=== PATIENT | female | born 1995 | race Caucasian/White ===

== ENCOUNTER 2019-06-10 11:06 | Emergency (ER) | payer OTHER ==
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
[2019-06-10] MEDS ORDERED: TETANUS & DIPHTHERIA TOX,ADULT 0.5 ML VIAL ONE (12:01)
== END 2019-06-10 12:14 | disposition home or self-care (01) ==
LOC: ER 11:06
DX: S60.511A Abrasion of right hand, initial encounter (principal); S00.90XA Unspecified superficial injury of unspecified part of head, initial encounter; W19.XXXA Unspecified fall, initial encounter; Y93.H9 Activity, other involving exterior property and land maintenance, building and construction; Z23 Encounter for immunization
CPT/HCPCS: 90714

== ENCOUNTER 2023-01-04 14:09 | Emergency (ER) | payer OTHER ==
[2023-01-04 15:38] LABS: Absolute Lymphocytes (CBC) 1.7 K/uL (0.7-4.9); Hematocrit 35.7 % (36.0-45.0); Lymphocytes % 20.7 % (15.3-44.8); MCV 88.5 fL (80-100); MPV 10.1 fL (7.6-11.3); RBC Red Blood Cell Count 4.04 M/uL (3.86-4.86)
--- OUTSIDE RECORDS SUMMARY | 2023-01-04 15:40 | XMS REPORT | Continuity of Care Document ---
:1995 Author Organization [facility] t Address [address] [place] [address] Care Team Providers Name Role Phone Barbie Lomeli Primary Care Physician [phone] BARBIE HAYDEN Attending Clinician Unavailable Barbie Lomeli Attending Clinician ALAN PATEL Attending Clinician Unavailable Alan Petersen Attending Clinician [phone] Doctor Unassigned, [place] Attending Clinician Unavailable LUIS GARCIA Attending Clinician Unavailable LUIS GARCIA Attending Clinician Unavailable Luis Garcia MD Attending Clinician Catalina Woodard MD Attending Clinician Steffanie Fischer MD Attending Clinician [phone] DONOVAN GALINDO Attending Clinician Unavailable Donovan Galindo MD Attending Clinician Lab, Jm-Rmchp Attending Clinician Unavailable 1, [facility] Us Room Attending Clinician Unavailable Sylvester Husain MD Attending Clinician SYLVESTER HUSAIN Attending Clinician Unavailable KELSIE HUFF Attending Clinician Unavailable Kelsie Huff MD Attending Clinician Faculty, [facility] Attending Clinician Unavailable Brittany Buchanan MD Attending Clinician BRITTANY BUCHANAN Attending Clinician Unavailable KING LEILANI ALDAIR Je Attending Clinician Unavailable Conrad Courtney MD Attending Clinician CONRAD COURTNEY Attending Clinician Unavailable Kayleigh Malik MD Attending Clinician ANURAG DEMPSEY Attending Clinician Unavailable Roselyn SENIOR PYTHON DEVELOPERAnurag Attending Clinician Ultrasound, Ang-Mfm Attending Clinician Unavailable ROULA SEAY Attending Clinician Unavailable Provider, Jm-Rmchp Temp Attending Clinician Unavailable Ada Roula MONTOYA Attending Clinician [phone] SETH JACK Attending Clinician Unavailable Seth Mclean Attending Clinician Sumit Smallwood MD Attending Clinician [phone] SUMIT SMALLWOOD Attending Clinician Unavailable Leona Arguello S Attending Clinician Kojo Corrigan Attending Clinician Antonio Harp MD Attending Clinician KELSIE HUFF Admitting Clinician Unavailable KAYLEIGH MALIK Admitting Clinician Unavailable LUIS GARCIA Admitting Clinician Unavailable Luis Garcia MD Admitting Clinician DONOVAN GALINDO Admitting Clinician Unavailable Donovan Galindo MD Admitting Clinician Kelsie Huff MD Admitting Clinician Kayleigh Malik MD Admitting Clinician Payers Payer Name Policy Type Policy Number Effective Date Expiration Date [facility] [id number] 2021 [facility] MEDICAID 00:00:00 MEDICAID PENDING PENDING 2021 00:00:00 [place] [id number] 2021 00:00:00 Problems Condition Condition Condition Status Onset Resolution Last Treating Co mments Source Name Details Category Date Date Treatment Clinician Date Encounter Encounter Disease Active Uni vers for IUD for IUD 6-23 [place] Obesity Obesity Disease Active Univers (BMI (BMI 6-23 ity of 30-39.9) 30-39.9) 00:00: [place] 00 [facility] Routine Routine Disease Active Univers 6-02 [place] of [place] [facility] Perineal Perineal Disease Active Unive rs laceration laceration 5-12 it y of with with 00:00: [place] delivery, delivery, 00 Medi joanne third third Branch degree degree Dermoid Dermoid Disease Active Univers cyst cyst 5-11 ity of 00:00: [place] 00 [facility] IUD check IUD check Disease Active Uni vers up up 6-22 ity of 00:00: [place] 00 [facility] Allergies, Adverse Reactions, Alerts Allergy Allergy Status Severity Reaction(s) Onset Inactive Treating Comm ents Source Name Type Date Date Clinician No Known DA Active U [facility]ie 3-16 [facility] Social History Social Habit Start Date Stop Date Quantity Comments Source History SDOH University o f Alcohol Frequency [facility] edical Branch History SDGA University o f Alcohol Std [place] Medical Drinks Branch History [facility] University o f Alcohol Binge [place] Medic al Branch Exposure to 2022-06-29 2022-07-09 Not sure Grady of SARS-CoV-2 00:00:00 09:08:00 [facility] [place] [facility] (event) Branch Alcohol intake 2022-05-03 2022-05-03 Ex-drinker University 00:00:00 00:00:00 (finding) [facility] Alcohol Comment 2021-05-02 2021-05-02 socially Universit y of 00:00:00 00:00:00 [facility] Tobacco use and 2017-11-07 2017-11-07 Smokeless tobacco Un iversity of exposure 00:00:00 00:00:00 non-user [facility] Sex Assigned At [birth year] Universit y of 00:00:00 00:00:00 [facility] Smoking Status Start Date Stop Date Source Never smoked tobacco [facility] Medications Ordered Filled Start Stop Current Ordering Indication Dosage Frequency Signature Comments Components Source Medication Medication Date Date Medication? Clinician (SIG) Name Name Yes [id number] 1{tbl} Take 1 U nivers vitamin 5-13 tablet by ity of w/FA tablet 00:00: mouth [place] 00 daily. Medical Branch docusate Yes [id number] 200mg Take 2 Un sharonda 100 mg 5-13 capsules ity of capsule 00:00: by mouth [place] 00 once daily Medical as needed Branch for Constipati on. ferrous Yes [id number] 325mg Take 1 Uni vers sulfate 325 5-13 tablet by ity of mg (65 mg 00:00: mouth 2 [place] iron) 00 (two) Medical tablet times Branch daily. ibuprofen Yes [id number] 600mg Take 1 U nivers 600 mg 5-13 tablet by ity of tablet 00:00: mouth [place] 00 every 6 Medical (six) Branch hours as needed (Pain). Take with food or milk. norethindro Yes [id number] .35mg Take 1 Univers ne 0.35 mg 5-13 tablet by ity of tablet 00:00: mouth [place] 00 daily. Medical Branch ascorbic Yes [id number] 500mg Take 1 U nivers acid, 4-21 tablet by ity of vitamin C, 00:00[place] 500 mg 00 (three) Medical tablet times Branch daily. ferrous Yes [id number] 325mg Take 1 Un sharonda sulfate 325 4-21 tablet by ity of mg (65 mg 00:00: mouth 2 [place] iron) 00 (two) Medical tablet times Branch daily. proMETHazin 2020-11 Yes Univer s e 25 mg 1-23 ity of tablet 00:00: [place] 00 Medical Branch doxylamine- 2020-11 Yes [id number] 1{tbl} Take 1 Univers pyridoxine, 1-17 tablet by ity of vit B6, 00:00: mouth 4 [place] (DICLEGIS) 00 (four) Medical 10-10 mg times Branch per tablet daily. Miscellaneo Yes [id number] Use as Univers Medical 08-07 directed ity o f Supply 00:00: [place] (BLOOD 00 Medical PRESSURE Branch CUFF) Misc 2020-0 Yes [id number] 1{packe Take 1 Univers vit 9-17 t} Packet by ity of 33-iron-fol 00:00: mouth [place] ic-dha 00 daily. Medical (SELECT-OB Branch + DHA) 29 mg iron-1 mg -250 mg combo pack Immunizations Ordered Filled Immunization Date Status Comments Sourc e Immunization Name Name TDAP 2022-01-03 Completed [facility] 00:00:00 [facility] TDAP 2018-10-11 Completed [facility] 00:00:00 [facility] Influenza Virus 2017-11-07 Completed [facility] y of Vaccine Quad IM 3+ 00:00:00 [facility] Vital Signs Vital Name Observation Time Observation Value Comments Source Systolic blood 2022-07-09 14:09:00 117 mm[Hg] Univer sity of [facility] Diastolic blood 2022-07-09 14:09:00 79 mm[Hg] [facility] Heart rate 2022-07-09 14:09:00 73 /min [facility] Respiratory rate 2022-07-09 14:09:00 18 /min [facility] Body weight 2022-07-09 14:09:00 94.257 kg [facility] BMI 2022-07-09 14:09:00 36.81 kg/m2 [facility] Procedures This patient has no known procedures. Encounters Start End Encounter Admission Attending Care Care Encounter Source Date/Time Date/Time Type Type Clinicians Facility Department ID 2022-02-14 Outpatient X [facility] [id number] Univers 08:59:58 ity of [facility] 2021-11-19 Outpatient X [facility] [id number] Univers 20:16:35 ity of [facility] 2021-09-08 Emergency [facility] [id number] Univers 05:39:18 ity of [facility] 2021-09-07 Emergency [facility] [id number] Univers 11:24[facility] [place] 2022-07-09 2022-07-09 Outpatient R CATRACHO [facility] [id number] Univers 09:00:00 09:23:32 BARBIE [place] o [facility] 2022-07-09 2022-07-09 [facility] [id number] Univers 09:00:00 09:23:32 Visit Barbie R END MAKER 350.1.13.10 ity [facility] [id number] [place] as MATERNAL [id number] [facility] & CHILD [address] [place] [address] 2022-06-21 2022-06-21 Outpatient R AKINSIPE, [facility] [id number] Univers 16:00:00 16:00:00 ALAN mossy o [facility] 2022-06-14 2022-06-14 Outpatient R AKINDEBORAHPE, [facility] [id number] Univers 08:15:00 08:15:00 ALAN mossy o [facility] 2022-05-03 2022-05-03 Outpatient R AKINPUMA, [facility] [id number] Univers 10:00:00 10:37:29 ALAN daven[place] o [facility] 2022-05-03 2022-05-03 [facility] [id number] Univers 10:00:00 10:37:29 Visit Alan Je END MAKER 350.1.13.10 ity of [facility] 4.2.7.2.686 [place] MATERNAL [id number] [facility] & CHILD [address] [place] [address] 2022-05-03 2022-05-03 Outpatient Maria Fernanda HAYDEN [facility] [id number] Univers 10:30:00 10:30:00 XIANGNDA ity o [facility] 2022-05-03 2022-05-03 Outpatient Maria Fernanda HAYDEN [facility] [id number] Univers 10:30:00 10:30:[address] XIANGNDA ity o [facility] 2022-05-03 2022-05-03 Outpatient Maria Fernanda HAYDEN [facility] [id number] Univers 10:30:00 10:30:00 XIANGNDA ity o [facility] 2022-05-03 2022-05-03 Outpatient Maria Fernanda HAYDEN [facility] [id number] Univers 10:30:00 10:30:00 BARBIE ity o [facility] 2022-05-03 2022-05-03 Outpatient R CATRACHO [facility] [id number] Univers 10:30:00 10:30:00 CHAROA isay o f [facility] 2022-05-03 2022-05-03 Outpatient R AKINPUMA, [facility] [id number] Univers 10:00:00 10:00:00 ALAN ity o f [facility] 2022-05-03 2022-05-03 Orders Doctor TRISTAN 1.2.840.114 [id number] Univers 00:00:00 00:00:00 Only Unassigned, CHRISTIANO 350.1.13.10 ity of [place] [facility] 4.2.7.2.686 [place] as [id number] [facility] 009 Branch 2022-04-12 2022-04-12 Outpatient R AKINDEBORAHMARCIN, [facility] [id number] Univers 10:30:00 10:53:25 ALAN isay o [facility] 2022-04-12 2022-04-12 [facility] [id number] Univers 10:30:00 10:53:25 Alan Wooten END MAKER 350.1.13.10 ity of Visit [facility] 4.2.7.2.686 [place] MATERNAL [id number] Med ical & CHILD [address] [place] [address] 2022-03-21 2022-03-23 Inpatient X LUIS GARCIA [facility] [id number] Univers 19:04:00 13:32:00 LUIS GARCIA itlc of [facility] 2022-03-21 2022-03-23 Hospital TRISTAN Garcia 1.2.840.114 [id number] Univers 19:04:00 13:32:00 Encounter Luis ALVARADO 350.1.13.10 ity of [facility] 4.2.7.2.686 [place] as [id number] [facility] 133 Branch 2022-03-21 2022-03-22 Anesthesia Catalina Woodard 1.2.84 0.114 [id number] Univers 23:12:00 06:28:00 Event Koutrouvelagatha, Steffanie CHRISTIANO 350.1.1 3.10 ity of [facility] 4.2.7.2.686 [place] as [id number] [facility] 132 Branch 2022-03-21 2022-03-21 Orders Doctor TRISTAN 1.2.840.114 [id number] Univers 00:00:00 00:00:00 Only Unassigned, CHRISTIANO 350.1.13.10 ity of [place] [facility] 4.2.7.2.686 [place] as [id number] [facility] 009 Branch 2022-03-14 2022-03-14 Outpatient R AKINSIPE, [facility] [id number] Univers 13:00:00 13:19:04 ALAN daven[place] o [facility] 2022-03-14 2022-03-14 Routine Akinsipe, [facility] [id number] Univers 13:00:00 13:19:04 Alan C END MAKER 350.1.13.10 ity of Visit [facility] 4.2.7.2.686 [place] MATERNAL [id number] [facility] ical & CHILD [address] [place] [address] 2022-03-10 2022-03-10 Outpatient X SHAKIRA DONOVAN [facility] M[facility]Y [id number] Univers 18:17:00 19:36:00 ity of [facility] 2022-03-10 2022-03-10 Emergency Hernando Galindon [facility] 1.2.840.114 [id number] Univers 18:17:00 19:36:00 [place] 350.1.13.10 i ty [facility] 4.2.7.2.686 [place] O[place] [id number] [facility] 083 Branch 2022-03-09 2022-03-09 Outpatient R AKINSIPE, [facility] [id number] Univers 09:15:00 13:39:33 ALAN ity o f [facility] 2022-03-09 2022-03-09 Routine Akinsipe, [facility] [id number] Univers 09:15:00 13:39:33 Alan C END MAKER 350.1.13.10 ity of Visit REGIONAL 4.2.7.2.686 [place] as MATERNAL [id number] [facility] [address] [place] [address] 2022-03-09 2022-03-09 Telephone Catracho [facility] 1.2.450.525 [id number] Univers 00:00:00 00:00:00 Tereelba R END MAKER 350.1.13.10 ity of REGIONAL 4.2.7.2.686 [place] as MATERNAL [id number] [facility] [address] [place] [address] 2022-03-07 2022-03-07 [facility] [id number] Univers 09:45:00 10:02:[address] [facility] 2022-03-07 2022-03-07 Routine [facility] 1.2.500.685 [id number] Univers 09:45:00 10:02:34 Alan Wooten END MAKER 350.1.13.10 ity of Visit REGIONAL 4.2.7.2.686 [place] MATERNAL [id number] [facility] & CHILD [address] [place] [address] 2022-03-07 2022-03-07 Outpatient R JORGE [facility] [id number] Univers 09:45:00 09:45:[address] [facility] 2022-03-02 2022-03-02 Outpatient R CATRACHO [facility] [id number] Univers 13:00:00 13:00:00 BARBIE villagomez [facility] 2022-03-02 2022-03-02 Packing And Wrapping Supervisor Lab, Ang-Rmchp [facility] 1.2.840. 114 [id number] Univers 13:00:00 13:00:00 Visit Catracho Barbie Irving END MAKER 350.1.13.10 ity of REGIONAL 4.2.7.2.686 [place] as MATERNAL [id number] [facility] & CHILD [address] [place] [address] 2022-03-01 2022-03-01 Telephone [facility] 1.2.840.114 [id number] Univers 00:00:00 00:00:00 Alan C END MAKER 350.1.13.10 ity of REGIONAL 4.2.7.2.686 [place] as MATERNAL [id number] [facility] [address] [place] [address] 2022-02-28 2022-02-28 Routine Akinsipe, [facility] [id number] Univers 10:00:00 11:00:46 Alan C END MAKER 350.1.13.10 ity of Visit REGIONAL 4.2.7.2.686 [place] as MATERNAL [id number] [facility] [address] [place] [address] 2022-02-28 2022-02-28 Outpatient R AKINSIPE, [facility] [id number] Univers 10:00:00 11:00:46 ALAN ity o f [facility] 2022-02-28 2022-02-28 Outpatient R AKINSIPE, [facility] [id number] Univers 10:00:00 10:00:00 ALAN ity o f [facility] 2022-02-28 2022-02-28 Outpatient R AKINSIPE, [facility] [id number] Univers 10:00:00 10:00:00 ALAN ity o f [facility] 2022-02-21 2022-02-21 Outpatient R AKINSIPE, [facility] [id number] Univers 09:45:00 10:31:33 ALAN ity o f [facility] 2022-02-21 2022-02-21 Routine Akinsipe, [facility] [id number] Univers 09:45:00 10:31:33 Alan C END MAKER 350.1.13.10 ity of Visit REGIONAL 4.2.7.2.686 [place] as MATERNAL [id number] [facility] & CHILD [address] [place] [address] 2022-02-19 2022-02-19 Packing And Wrapping Supervisor 1Kim Room [facility] 1.2. 840.114 [id number] Univers 09:45:00 10:23:16 Visit Sylvester Husain END MAKER 350.1.13.10 ity of REGIONAL 4.2.7.2.686 [place] MATERNAL [id number] Med ical & CHILD 369 [facility] 2022-02-19 2022-02-19 Outpatient P FRANCI [facility] [id number] Univers 09:45:00 09:45:00 [facility] [place] 2022-02-14 2022-02-14 Outpatient X ADUM, [facility] MANDY [id number] Univers 06:54:00 08:55:00 KELSIE ity [facility] 2022-02-14 2022-02-14 Emergency Adum, [facility] 1.2.235.532 [id number] Univers 06:54:00 08:55:00 Kelsie SAMUEL 350.1.13.10 ity [facility] 4.2.7.2.686 [facility] [id number] [address] 2022-02-12 2022-02-12 Telemedici Faculty, [facility] 1.2.840.114 [id number] Univers 08:30:00 08:45:00 ne Visit Brittany Buchanan END MAKER 350.1.13.10 ity of REGIONAL 4.2.7.2.686 [place] MATERNAL [id number] [facility] & CHILD [address] [place] [address] 2022-02-12 2022-02-12 Outpatient Maria Fernanda BUCHANAN [facility] [id number] Univers 08:30:00 08:30:00 BRITTANY lc [facility] 2022-01-26 2022-01-26 Outpatient R JORGE [facility] [id number] Univers 08:00:00 08:49:52 ALAN ity o f [facility] 2022-01-26 2022-01-26 Routine Akinsimarcin, [facility] 1.2.962.204 [id number] Univers 08:00:00 08:49:52 Alan C END MAKER 350.1.13.10 ity of Visit [facility] 4.2.7.2.686 [place] as MATERNAL [id number] [facility] & CHILD [address] [place] [address] 2022-01-23 2022-01-23 Outpatient R KING LEILANI [facility] [id number] Univers 13:40:00 14:01:00 ALDAIR ity of [facility] 2022-01-23 2022-01-23 Telephone [facility] 1.2.607.082 [id number] Univers 00:00:00 00:00:00 Xiangkelsiearthur R END MAKER 350.1.13.10 ity of REGIONAL 4.2.7.2.686 [place] as MATERNAL [id number] [facility] [address] [place] [address] 2022-01-17 2022-01-17 Outpatient [facility] [id number] Univers 08:00:00 08:00:00 ALAN ity o [facility] 2022-01-12 2022-01-12 Outpatient [facility] [id number] Univers 12:45:00 13:47:37 ALAN ity o f [facility] 2022-01-12 2022-01-12 [facility] 1.2.459.070 [id number] Univers 12:45:00 13:47:37 Alan C END MAKER 350.1.13.10 ity of Visit REGIONAL 4.2.7.2.686 [place] as MATERNAL [id number] [facility] & CHILD [address] [place] [address] 2022-01-10 2022-01-10 Abstract [facility] 1.2.840.114 [id number] Univers 00:00:00 00:00:00 Alan C END MAKER 350.1.13.10 ity of REGIONAL 4.2.7.2.686 [place] as MATERNAL [id number] [facility] [address] [place] [address] 2022-01-09 2022-01-09 Packing And Wrapping Supervisor 1, [facility] Room [facility] 1.2. 840.114 [id number] Univers 15:30:00 16:09:04 Visit Conrad Courtney END MAKER 350.1.13.10 ity of REGIONAL 4.2.7.2.686 [place] as MATERNAL [id number] [facility] ical & CHILD [address] [place] [address] 2022-01-09 2022-01-09 Outpatient P [facility] [id number] Univers 15:30:00 15:30:00 CONRAD ity of [facility] 2022-01-08 2022-01-08 Telephone [facility] 1.2.840.114 [id number] Univers 00:00:00 00:00:00 Alan C END MAKER 350.1.13.10 ity of [facility] 4.2.7.2.686 [place] as MATERNAL [id number] [facility] [address] [place] [address] 2022-01-03 2022-01-03 [facility] [id number] Univers 08:00:00 09:19:11 ALAN d[place] o [facility] 2022-01-03 2022-01-03 Routine [facility] 1.2.726.461 [id number] Univers 08:00:00 09:19:11 Alan C END MAKER 350.1.13.10 ity of Visit [facility] 4.2.7.2.686 [place] as MATERNAL [id number] [facility] & CHILD [address] [place] [address] 2022-01-03 2022-01-03 [facility] [id number] Univers 08:00:00 08:00:00 ALAN daven[place] o [facility] 2022-01-03 2022-01-03 Orders Doctor HUDSON 1.2.840.114 [id number] Univers 00:00:00 00:00:00 Only Unassigned, CHRISTIANO 350.1.13.10 ity of [place] [facility] 42.7.2.686 Osman as [id number] [address] 2021-12-06 2021-12-06 Outpatient R AKINSIPE, [facility] [id number] Univers 08:00:00 08:43:51 ALAN daven[place] o [facility] 2021-12-06 2021-12-06 Routine [facility] 1.2.170.544 [id number] Univers 08:00:00 08:43:51 Alan C END MAKER 350.1.13.10 ity of Visit [facility] 4.2.7.2.686 [place] as MATERNAL [id number] Med ical & CHILD [address] [place] [address] 2021-12-05 2021-12-05 Outpatient R JORGE [facility] [id number] Univers 10:30:00 10:30:00 ALAN isalc o f [facility] 2021-11-19 2021-11-19 Outpatient X [facility] MANDY [id number] Univers 13:33:00 18:55:00 ity of [facility] 2021-11-19 2021-11-19 Emergency MalikKayleigh [facility] 1.2.840.114 [id number] Univers 13:33:00 18:55:00 [facility] 350.1.13.10 i ty of [place] 4.2.7.2.686 [facility] [id number] [address] 2021-11-13 2021-11-13 Outpatient R ROSELYN [facility] [id number] Univers 15:30:00 15:37:22 ANURAG [place] [facility] 2021-11-13 2021-11-13 Routine [facility] 1.2.603.980 [id number] Univers 15:30:00 15:37:22 Anurag Smith END MAKER 350.1.13.10 i ty of [facility] 4.2.7.2.686 [place] as MATERNAL [id number] [facility] & [address] 2021-11-13 2021-11-13 Telephone [facility] 1.2.851.033 [id number] Univers 00:00:00 00:00:00 Barbie R END MAKER 350.1.13.10 ity of [facility] 4.2.7.2.686 [place] as MATERNAL [id number] [facility] & CHILD [address] [place] [address] 2021-11-08 2021-11-08 Outpatient R ROSELYN [facility] [id number] Univers 09:30:00 09:30:00 ANURAG [place] [facility] 2021-11-07 2021-11-07 Outpatient R ROSELYN [facility] [id number] Univers 16:00:00 16:34:24 ANURAG [place] [facility] 2021-11-07 2021-11-07 Routine [facility] [id number] [id number] Univers 16:00:00 16:34:24 Anurag N END MAKER 350.1.13.10 i ty of Visit REGIONAL 4.2.7.2.686 [place] as MATERNAL [id number] [facility] [address] [place] [address] 2021-11-06 2021-11-06 Packing And Wrapping Supervisor Ultrasound, [facility] [id number] Univers 09:30:00 10:45:00 Visit Sylvester Husain END MAKER [id number] ity of REGIONAL [id number] Osman as MATERNAL [id number] [facility] [address] [place] [address] 2021-11-06 2021-11-06 Outpatient P FRANCI [facility] [id number] Univers 09:30:00 09:30:00 SYLVESTER [facility] 2021-11-06 2021-11-06 Abstract Catracho [facility] 1.2.840.114 [id number] Univers 00:00:00 00:00:00 Barbie Irving END MAKER 350.1.13.10 ity of REGIONAL [id number] [place] MATERNAL [phone] [facility] & [address] 2021-10-25 2021-10-25 [facility]phone [facility] 1.2.840.114 [id number] Univers 00:00:00 00:00:00 Anurag Smith END MAKER 350.1.13.10 it y of REGIONAL [id number] [place] as MATERNAL [phone] [facility] & CHILD [address] [place] [address] 2021-10-12 2021-10-12 Outpatient R [facility] [id number] Univers 08:45:00 09:21:17 ANURAG daven[place] [facility] 2021-10-12 2021-10-12 Routine [facility] [id number] Univers 08:37:39 09:21:17 Anurag N END MAKER 350.1.13.10 i ty of Visit REGIONAL [id number] [place] MATERNAL [phone] Med ical & CHILD [address] [place] [address] 2021-10-03 2021-10-03 Telephone [facility] 1.2.840.114 [id number] Univers 00:00:00 00:00:00 Anurag Smith END MAKER 350.1.13.10 it y of [facility] [id number] [place] MATERNAL [phone] Med ical & CHILD [address] [place] [address] 2021-09-27 2021-09-27 Outpatient Maria Fernanda [facility] [id number] Univers 10:45:00 11:50:25 ROULA davenport o [facility] 2021-09-27 2021-09-27 Outpatient Maria Fernanda [facility] [id number] Univers 10:45:00 11:50:25 ROULA davenport o [facility] 2021-09-27 2021-09-27 Routine Provider, Sabrina [facility] 1 .2.840.114 [id number] Univers 10:38:13 11:50:25 Roula Seay END MAKER 350.1.13 .10 ity of Visit REGIONAL [id number] [place] MATERNAL [phone] Med ical & CHILD [address] [place] [address] 2021-09-27 2021-09-27 Telephone [facility] 1.2.840.114 [id number] Univers 00:00:00 00:00:00 Roula Samayoa END MAKER [id number] ity of REGIONAL [id number] [place] MATERNAL [phone] Med ical & CHILD [address] [place] [address] 2021-09-25 2021-09-25 Emergency X JACK, [facility] ERT [id number] Univers 20:02:00 21:44:00 SETH d[place] [facility] 2021-09-25 2021-09-25 Emergency Jack, [facility] 1.2.840.114 [id number] Univers 20:02:00 21:44:00 [facility] 350.1.13.10 i ty [facility] 4.2.7.2.686 [facility] [phone] [facility] [address] [place] 2021-09-15 2021-09-15 Orders Doctor TRISTAN 1.2.840.114 [id number] Univers 00:00:00 00:00:00 Only Unassigned, CHRISTIANO 350.1.13.10 ity of [place] [facility] 4.2.7.2.686 [place] as [phone] [facility] 00[address] [place] 2021-09-14 2021-09-14 Packing And Wrapping Supervisor [facility]trasound[facility] 1.2 .840.114 [id number] Univers 08:33:37 09:03:37 Visit Anurag Dempsey END MAKER 350.1.13.10 ity of Sumit Smallwood [facility] 4.2.7.2 .686 [place] MATERNAL [phone] Med ical & CHILD 369 [facility] 2021-09-14 2021-09-14 Routine Roselyn [facility] 1.2.211.767 [id number] Univers 08:05:38 08:33:43 Anurag Smith END MAKER 350.1.13.10 i ty of Visit REGIONAL [id number] [place] MATERNAL [phone] Med ical & CHILD [address] [place] [address] 2021-09-14 2021-09-14 Outpatient P CL AZCHESTER [facility] [id number] Univers 08:30:00 08:30:00 SUMIT ity of [facility] 2021-09-13 2021-09-13 Telephone Roselyn AZCHESTER 1.2.840.114 [id number] Univers 00:00:00 00:00:00 Anurag Smith END MAKER 350.1.13.10 it y of REGIONAL [id number] [place] MATERNAL [phone] Med ical & CHILD [address] [place] [address] 2021-08-29 2021-08-29 Patient Roselyn [facility] 1.2.219.059 [id number] Univers 00:00:00 00:00:00 Secure Msg Anurag Smith END MAKER 350.1.13.10 ity of [facility] [id number] [place] MATERNAL [phone] Med ical & CHILD 107 [facility] 2021-08-29 2021-08-29 Telephone Roselyn AZCHESTER 1.2.840.114 [id number] Univers 00:00:00 00:00:00 Anurag Smith END MAKER 350.1.13.10 it y of REGIONAL [id number] [place] MATERNAL [phone] Med ical & CHILD 107 [facility] 2021-08-28 2021-08-28 Telephone Roselyn [facility] 1.2.840.114 [id number] Univers 00:00:00 00:00:00 Anurag Smith END MAKER 350.1.13.10 it y of REGIONAL [id number] [place] MATERNAL [phone] Med ical & CHILD [address] [place] [address] 2021-08-21 2021-08-21 Routine Provider, Sabrina [facility] 1 .2.840.114 [id number] Univers 09:53:39 10:39:30 Roula Seay END MAKER 350.1.13 .10 ity of Visit REGIONAL [id number] [place] MATERNAL [phone] Med ical & CHILD [address] [place] [address] 2021-08-21 2021-08-21 Outpatient R [facility] [id number] Univers 10:00:00 10:00:00 ity of [facility] 2021-08-15 2021-08-15 Packing And Wrapping Supervisor Ultrasound, Dada [facility] 1.2 .840.114 [id number] Univers 08:23:20 08:53:20 Visit Brittany Buchanan END MAKER 350.1.13.10 ity of REGIONAL [id number] [place] MATERNAL [phone] Med ical & CHILD 369 [facility] 2021-08-15 2021-08-15 Outpatient P [facility] [id number] Univers 08:30:00 08:30:00 ity of [facility] 2021-08-15 2021-08-15 Abstract Roselyn [facility] 1.2.840.114 [id number] Univers 00:00:00 00:00:00 Anurag Smith END MAKER 350.1.13.10 it y of REGIONAL [id number] [place] MATERNAL [phone] Med ical & CHILD 107 [facility] 2021-08-07 2021-08-07 Routine Faculty, Jm Wilkes [facility] 1.2 .840.114 [id number] Univers 10:29:39 11:23:56 Brittany Buchanan END MAKER 350.1.13.10 ity of Visit REGIONAL [id number] [place] MATERNAL [phone] Med ical & CHILD [address] [place] [address] 2021-08-07 2021-08-07 Outpatient R [facility] [id number] Univers 10:30:00 10:30:00 ity of [facility] 2021-07-28 2021-07-28 Telephone Catracho [facility] 1.2.857.059 [id number] Univers 00:00:00 00:00:00 Roshunda R END MAKER 350.1.13.10 ity of REGIONAL 4.2.7.2.686 [place] as MATERNAL [phone] [facility] [address] [place] [address] 2021-07-27 2021-07-27 Packing And Wrapping Supervisor Lab, Rosalesdaphney [facility] 1.2.840. 114 [id number] Univers 08:11:06 09:40:38 Visit Alan Patel END MAKER 350.1.13. 10 ity of REGIONAL 4.2.7.2.686 [place] MATERNAL [phone] [facility] ical & CHILD [address] [place] [address] 2021-07-27 2021-07-27 Outpatient R JORGE [facility] [id number] Univers 07:45:00 07:45:00 ALAN mossy o f [facility] 2021-07-24 2021-07-24 Initial Catracho [facility] 1.2.840.114 [id number] Univers 09:02:22 10:05:44 Roshunda R END MAKER 350.1.13.10 ity of Visit REGIONAL 4.2.7.2.686 [place] MATERNAL [phone] Med ical & CHILD [address] [place] [address] 2021-07-24 2021-07-24 [facility] 1.2.840.114 [id number] Univers 09:02:22 10:05:44 Xiangnda R END MAKER 350.1.13.10 ity of Visit REGIONAL 4.2.7.2.686 [place] MATERNAL [id number] [facility] [address] [place] [address] 2021-07-24 2021-07-24 Outpatient [facility] [id number] Univers 09:00:00 09:00:00 XIANGNDA ity o f [facility] 2021-07-24 2021-07-24 Orders Doctor TRISTAN 1.2.840.114 [id number] Univers 00:00:00 00:00:00 Only Unassigned, CHRISTIANO 350.1.13.10 ity of [place] [facility] 4.2.7.2.686 [place] as [phone] [address] 2021-07-24 2021-07-24 Orders Doctor TRISTAN 1.2.840.114 [id number] Univers 00:00:00 00:00:00 Only Unassigned, CHRISTIANO 350.1.13.10 ity of [place] [facility] 4.2.7.2.686 [place] as [phone] [address] 2021-05-04 2021-05-04 Office [facility] 1.2.840.114 [id number] Univers 15:28:23 16:08:36 Visit Charoa R END MAKER 350.1.13.10 ity of REGIONAL 4.2.7.2.686 [place] MATERNAL [phone] [facility] [address] [place] [address] 2021-05-04 2021-05-04 Outpatient [facility] [id number] Univers 15:30:00 15:30:00 XIANGNDA ity o f [facility] 2021-05-02 2021-05-02 Office [facility] 1.2.840.114 [id number] Univers 10:45:41 11:52:36 Visit Xiangnda R END MAKER 350.1.13.10 ity of REGIONAL 4.2.7.2.686 [place] MATERNAL [phone] Med ical & CHILD [address] [place] [address] 2021-05-02 2021-05-02 Outpatient R CATRACHO [facility] [id number] Univers 11:00:00 11:00:00 BARBIE davenport o hernando [facility] 2021-05-02 2021-05-02 Orders Doctor HUDSON 1.2.840.114 [id number] Univers 00:00:00 00:00:00 Only UnassignedCHRISTIANO 350.1.13.10 ity of [place] [facility] 4.2.7.2.686 [place] as [phone] [address] 2020-05-18 2020-05-18 Emergency [facility] 1.2.514.167 [id number] Univers 18:39:45 22:50:00 Leona Samuel 350.1.13.10 i ty of [place] 4.2.7.2.686 [facility] [phone] [address] 2020-01-07 2020-01-07 [facility] 1.2.840.114 [id number] Univers 10:02:28 11:27:00 Kojo Samuel 350.1.13.10 i ty of [place] 4.2.7.2.686 [facility] [phone] [address] 2020-01-07 2020-01-07 Orders Doctor HUDSON 1.2.840.114 [id number] Univers 00:00:00 00:00:00 Only UnassignedCHRISTIANO 350.1.13.10 ity of [place] [facility] 4.2.7.2.686 [place] as [phone] [address] 2020-01-03 2020-01-03 Emergency [facility] 1.2.126.762 [id number] Univers 20:26:25 21:35:00 Antonio Samuel 350.1.13.10 ity of [place] 4.2.7.2.686 [facility] [phone] [address] 2020-01-03 2020-01-03 Orders Doctor HUDSON 1.2.840.114 [id number] Univers 00:00:00 00:00:00 Only UnassignedKATHERINEY 350.1.13.10 ity of [place] [facility] 4.2.7.2.686 [place] [phone] [facility] [address] Results This patient has no known results.
[2023-01-04 15:57] LABS: Potassium 3.8 mmol/L (3.5-5.1)
[2023-01-04 16:39] LABS: Urine Blood 3+ (Negative); Urine Glucose Negative (Negative); Urine Protein Negative (Negative); Urine Specific Gravity >=1.030 (1.005-1.030)
--- NOTE | 2023-01-04 16:46 | RAD REPORT ---
EXAM DESCRIPTION: US - Transvaginal OB - 01/04/2023 3:12 pm CLINICAL HISTORY: with vaginal bleeding COMPARISON: None. FINDINGS: The uterus measures 8 x 4 x 5 centimeters. An IUD is present within the endometrium exten ding into the uterine fundus. A gestational sac is not visualized. The left ovary normal in size and echotexture. 7.5 centimeter partially echogenic mass right adnexal. Right ovary not clearly seen. Left adnexal unremarkable. No significant free fluid IMPRESSION: Nonvisualization of a gestational sac within the endometrium. These findings could represent an early intrauterine in which the gestational sac is not se en. and even an ectopic can also result in this appearance. This all should be cor related clinically and with serial beta HCG levels. Followup endovaginal sonogram in 1 week recommend ed ICD in place 7.5 centimeter partially echogenic mass probably dermoid. Hemorrhagic ovarian cyst is probably less l ikely. This can be confirmed with a nonemergent CT or MRI
[2023-01-04 17:11] LABS: Urine Bacteria None Seen /HPF (<20); Urine Mucus Slight /HPF (None Seen); Urine RBC <5 /HPF (None Seen)
--- NOTE | 2023-01-04 17:21 | EDPHYS ---
Physician Documentation [facility] Name: Lamberto Saravia Age: 27 yrs Sex: Female : 1995 Arrival Date: 01/04/2023 Time: 14:19 Bed 10 Private MD: Jeff Olivier HPI: 01/04 14:43 This 27 yrs old Female presents to ER via Ambulatory with complaints of Possible snw , Abdominal Cramping. 14:43 The patient presents with vaginal bleeding that is light. Onset: The symptoms/episode snw began/occurred suddenly. Associated signs and symptoms: Pertinent positives: + test. Severity of symptoms: At their worst the symptoms were very mild. The patient has not experienced similar symptoms in the past. The patient has not recently seen a physician. 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 snw + test today and then some bright red spotting, Pt states last intercourse more than one month ago Historical: - Allergies: 14:24 No Known Allergies; hb - Home Meds: 14:24 None [Active]; hb - PMHx: 14:24 None; hb - PSHx: 14:24 None; hb - Immunization history:: Adult Immunizations up to date. - Social history:: Smoking status: Patient denies any tobacco usage or history of. ROS: 14:42 Constitutional: Negative for fever, chills, and weight loss, Eyes: Negative for injury, snw pain, redness, and discharge, ENT: Negative for injury, pain, and discharge, Neck: Negative for injury, pain, and swelling, Cardiovascular: Negative for chest pain, palpitations, and edema, Respiratory: Negative for shortness of breath, cough, wheezing, and pleuritic chest pain, Abdomen/GI: Negative for abdominal pain, nausea, vomiting, diarrhea, and constipation, Back: Negative for injury and pain, MS/Extremity: Negative for injury and deformity, Skin: Negative for injury, rash, and discoloration, Neuro: Negative for headache, weakness, numbness, tingling, and seizure, Psych: Negative for depression, anxiety, suicide ideation, homicidal ideation, and hallucinations. 14:42 : Positive for vaginal bleeding, menstrual abnormality, mild lower abd cramping yesterday. Exam: 14:42 Constitutional: This is a well developed, well nourished patient who is awake, alert, snw and in no acute distress. Head/Face: Normocephalic, atraumatic. Eyes: Pupils equal round and reactive to light, extra-ocular motions intact. Lids and lashes normal. Conjunctiva and sclera are non-icteric and not injected. Cornea within normal limits. Periorbital areas with no swelling, redness, or edema. ENT: Nares patent. No nasal discharge, no septal abnormalities noted. Tympanic membranes are normal and external auditory canals are clear. Oropharynx with no redness, swelling, or masses, exudates, or evidence of obstruction, uvula midline. Mucous membranes moist. Neck: Trachea midline, no thyromegaly or masses palpated, and no cervical lymphadenopathy. Supple, full range of motion without nuchal rigidity, or vertebral point tenderness. No Meningismus. Chest/axilla: Normal chest wall appearance and motion. Nontender with no deformity. No lesions are appreciated. Cardiovascular: Regular rate and rhythm with a normal S1 and S2. No gallops, murmurs, or rubs. Normal PMI, no JVD. No pulse deficits. Respiratory: Lungs have equal breath sounds bilaterally, clear to auscultation and percussion. No rales, rhonchi or wheezes noted. No increased work of breathing, no retractions or nasal flaring. Abdomen/GI: Soft, non-tender, with normal bowel sounds. No distension or tympany. No guarding or rebound. No evidence of tenderness throughout. Back: No spinal tenderness. No costovertebral tenderness. Full range of motion. Skin: Warm, dry with normal turgor. Normal color with no rashes, no lesions, and no evidence of cellulitis. MS/ Extremity: Pulses equal, no cyanosis. Neurovascular intact. Full, normal range of motion. Neuro: Awake and alert, GCS 15, oriented to person, place, time, and situation. Cranial nerves II-XII grossly intact. Motor strength 5/5 in all extremities. Sensory grossly intact. Cerebellar exam normal. Normal gait. Psych: Awake, alert, with orientation to person, place and time. Behavior, mood, and affect are within normal limits. Vital Signs: 14:22 BP 146 / 100; Pulse 83; Resp 16; Temp 97.8(TE); Pulse Ox 100% on R/A; Weight 90.72 kg; hb Height 5 ft. 3 in. (160.02 cm); Pain 3/10; 14:22 Body Mass Index 35.43 (90.72 kg, 160.02 cm) hb MDM: 14:29 Patient medically screened. johanna 14:46 Differential diagnosis: dysfunctional uterine bleeding, dysmenorrhea, malignancy, snw . Data reviewed: vital signs, nurses notes. ED course: Pt to US. 17:03 Counseling: I had a detailed discussion with the patient and/or guardian regarding: the snw historical points, exam findings, and any diagnostic results supporting the discharge/admit diagnosis, the presence of at least one elevated blood pressure reading (>120/80) during this emergency department visit, lab results, radiology results, the need for outpatient follow up, for definitive care, to return to the emergency department if symptoms worsen or persist or if there are any questions or concerns that arise at home. Special discussion: Based on the history and exam findings, there is no indication for further emergent testing or inpatient evaluation. I discussed with the patient/guardian the need to see the OB Gyne specialist for further evaluation of the symptoms. I discussed with the patient/guardian the need to see the primary care provider for further evaluation of the symptoms. 17:19 ED course: Pt to return to ED Saturday for repeat HCG, has appt with REAL ESTATE TRANSACTION MANAGER on 01/16/23. 01/04 14:22 Order name: Urine Culture 01/04 14:22 Order name: Urine Microscopic Only; Complete Time: 17:18 01/04 14:41 Order name: Abo/rh Typing; Complete Time: 16:28 01/04 14:41 Order name: Basic Metabolic Panel; Complete Time: 15:58 01/04 14:41 Order name: CBC with Diff; Complete Time: 15:42 01/04 14:41 Order name: Quantitative Hcg; Complete Time: 15:58 01/04 14:22 Order name: Urine Dipstick-Ancillary (obtain specimen); Complete Time: 16:41 01/04 14:22 Order name: Urine Test (obtain specimen); Complete Time: 16:41 01/04 14:41 Order name: US Transvaginal Ob; Complete Time: 16:51 snw 01/04 14:41 Order name: IV Saline Lock; Complete Time: 15:37 snw 01/04 15:18 Order name: Pelvis Complete EDMS 01/04 16:40 Order name: Urine Dipstick-Ancillary; Complete Time: 16:40 EDMS 01/04 16:50 Order name: Urine --Ancillary (enter results); Complete Time: 16:57 eb 01/04 14:41 Order name: Labs collected and sent; Complete Time: 15:37 snw 01/04 14:41 Order name: NPO; Complete Time: 16:52 snw Administered Medications: No medications were administered Disposition Summary: 01/04/23 17:21 Discharge Ordered Location: Home snw Condition: Stable snw Diagnosis - Abnormal uterine and vaginal bleeding, unspecified snw - HCGq 33 snw - Elevated blood-pressure reading, without diagnosis of hypertension snw Followup: snw - With: Private Physician - When: 7 - 10 days - Reason: Recheck today's complaints, Continuance of care, Re-evaluation by your physician Followup: snw - With: Emergency Department - When: 2 - 3 days - Reason: repeat HCG Discharge Instructions: - Discharge Summary Sheet snw - Abnormal Uterine Bleeding snw - Hypertension, Adult, [id number] snw - How to Take Your Blood Pressure, [id number] snw - DASH Eating Plan snw - Managing Your Hypertension snw Forms: - Medication Reconciliation Form snw - Thank You Letter snw - Antibiotic Education snw - Prescription Opioid Use snw Signatures: Dispatcher [employer] Jeff Christianson MD MD cha Waters, Shelly, FRUIT PEELER-C FRUIT PEELER-Csnw Nuha Gee, RN RN
--- NOTE | 2023-01-04 17:21 | ER ---
Nurse's Notes [facility] Name: Lamberto Saravia Age: 27 yrs Sex: Female : 1995 Arrival Date: 01/04/2023 Time: 14:19 Bed 10 Private MD: Diagnosis: Abnormal uterine and vaginal bleeding, unspecified;HCGq 33;Elevated blood-pressure reading, without diagnosis of hypertension Presentation: 01/04 14:22 Chief complaint: Abdominal cramping x 2 days, positive home test x 3 today. hb LMP unknown, has an IUD in place. Coronavirus screen: At this time, the client does not indicate any symptoms associated with coronavirus-19. Ebola Screen: No symptoms or risks identified at this time. Initial Sepsis Screen: Does the patient meet any 2 criteria? No. Patient's initial sepsis screen is negative. Does the patient have a suspected source of infection? No. Patient's initial sepsis screen is negative. Risk Assessment: Do you want to hurt yourself or someone else? Patient reports no desire to harm self or others. Onset of symptoms was January 04, 2023. 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 snw + test today and then some bright red spotting, Pt states last intercourse more than one month ago Historical: - Allergies: 14:24 No Known Allergies; hb - Home Meds: 14:24 None [Active]; hb - PMHx: 14:24 None; hb - PSHx: 14:24 None; hb - Immunization history:: Adult Immunizations up to date. - Social history:: Smoking status: Patient denies any tobacco usage or history of. Screenin:54 [facility] ED Fall Risk Assessment (Adult) History of falling in the last 3 months, iw including since admission No falls in past 3 months (0 pts). Abuse screen: Denies threats or abuse. Denies injuries from another. Nutritional screening: No deficits noted. Tuberculosis screening: No symptoms or risk factors identified. Assessment: 16:54 Reassessment: Patient appears in no apparent distress at this time. Patient and/or iw family updated on plan of care and expected duration. Pain level reassessed. Patient is alert, oriented x 3, equal unlabored respirations, skin warm/dry/pink. Vital Signs: 14:22 BP 146 / 100; Pulse 83; Resp 16; Temp 97.8(TE); Pulse Ox 100% on R/A; Weight 90.72 kg; hb Height 5 ft. 3 in. (160.02 cm); Pain 3/10; 14:22 Body Mass Index 35.43 (90.72 kg, 160.02 cm) hb ED Course: 14:19 Patient arrived in ED. mr 14:22 Susan Hernandez FNP-C is [facility]. snw 14:22 Jeff Mcneil MD is Attending Physician. snw 14:24 Triage completed. hb 14:24 Arm band placed on. hb 15:14 US Transvaginal Ob In Process Unspecified. EDMS 15:18 Pelvis Complete In Process Unspecified. EDMS 15:37 Abo/rh Typing Sent. mm9 15:37 Basic Metabolic Panel Sent. mm9 15:37 CBC with Diff Sent. mm9 15:37 Quantitative Hcg Sent. mm9 15:38 Initial lab(s) drawn, by ED staff, sent to lab. Inserted saline lock: 22 gauge in left mm9 antecubital area, using aseptic technique. Blood collected. 16:41 Urine Culture Sent. mm9 16:41 Urine Microscopic Only Sent. mm9 16:41 Urine collected: clean catch specimen, cloudy. mm9 16:42 Diet: Patient is NPO. mm9 Administered Medications: No medications were administered Medication: 16:54 VIS not applicable for this client. iw Outcome: 17:21 Discharge ordered by . snw 18:13 Patient left the ED. jl7 Signatures: Dispatcher [employer] EDMS Susan Hernandez FNP-C FNP-Stephan Poonam Smalls Mi Bajwa, RN Nuha Krishnan, Amanda Johnson RN, RN RN jl7 Lorenza Brand mm9
[2023-01-04] MEDS ORDERED: NA CHLORIDE 0.9% 500 ML ONE (17:53)
--- NOTE | 2023-01-04 22:39 | RAD REPORT ---
EXAM DESCRIPTION: US - Pelvis Complete - 01/04/2023 3:16 pm CLINICAL HISTORY: with vaginal bleeding COMPARISON: None. FINDINGS: The uterus measures 8 x 4 x 5 centimeters. An IUD is present within the endometrium extend ing into the uterine fundus. A gestational sac is not visualized. The left ovary normal in size and echotexture. 7.5 centimeter partially echogenic mass right adnexal. Right ovary not clearly seen. Left adnexal unremarkable. No significant free fluid IMPRESSION: Nonvisualization of a gestational sac within the endometrium. These findings could represent an early intrauterine in which the gestational sac is not se en. and even an ectopic can also result in this appearance. This all should be cor related clinically and with serial beta HCG levels. Followup endovaginal sonogram in 1 week recommend ed ICD in place 7.5 centimeter partially echogenic mass probably dermoid. Hemorrhagic ovarian cyst is probably less l ikely. This can be confirmed with a nonemergent CT or MRI
== END 2023-01-04 18:13 | disposition home or self-care (01) ==
LOC: ER 14:09
DX: O20.9 Hemorrhage in early pregnancy, unspecified (principal); R03.0 Elevated blood-pressure reading, without diagnosis of hypertension
CPT/HCPCS: 87088; 85025; 87086; 80048; 36415; 86900; 81025; 86901; 84702; 76856; 76817; 99283; J7040; 81003; 81015

== ENCOUNTER 2023-01-08 09:10 | Emergency (ER) | payer OTHER ==
--- OUTSIDE RECORDS SUMMARY | 2023-01-08 09:45 | XMS REPORT | Continuity of Care Document ---
:1995 Author Organization [facility] t Address [address] [facility] [address] [place] [address] Care Team Providers Name Role Phone Barbie Lomeli Primary Care Physician [phone] BARBIE HAYDEN Attending Clinician Unavailable Barbie Lomeli Attending Clinician ALAN PATEL Attending Clinician Unavailable Alan Petersen Attending Clinician [phone] Doctor Unassigned, Golf Attending Clinician Unavailable LUIS GARCIA Attending Clinician Unavailable LUIS GARCIA Attending Clinician Unavailable Luis Garcia MD Attending Clinician Catalina Woodard MD Attending Clinician Steffanie Fischer MD Attending Clinician [phone] DONOVAN GALINDO Attending Clinician Unavailable Donovan Galindo MD Attending Clinician Lab, ClaudetteRmchp Attending Clinician Unavailable 1, [facility] Us Room Attending Clinician Unavailable Sylvester Husain MD Attending Clinician SYLVESTER HUSAIN Attending Clinician Unavailable KELSIE HUFF Attending Clinician Unavailable Kelsie Huff MD Attending Clinician Faculty, [facility] Attending Clinician Unavailable Brittany Buchanan MD Attending Clinician BRITTANY BUCHANAN Attending Clinician Unavailable KING LEILANI ALDAIR Je Attending Clinician Unavailable Conrad Courtney MD Attending Clinician CONRAD COURTNEY Attending Clinician Unavailable Kayleigh Malik MD Attending Clinician ANURAG DEMPSEY Attending Clinician Unavailable Roselyn SENIOR C WEB DEVELOPERAnurag Attending Clinician Ultrasound, Ang-Mfm Attending Clinician Unavailable ROULA SEAY Attending Clinician Unavailable Provider, Jm-Rmchp Temp Attending Clinician Unavailable Ada Roula MONTOYA Attending Clinician [phone] SETH JACK Attending Clinician Unavailable Seth Mclean Attending Clinician Sumit Smallwood MD Attending Clinician [phone] SUMIT SMALLWOOD Attending Clinician Unavailable Leona [...] Number Effective Date Expiration Date [facility] [id number] 2021 [facility] MEDICAID 00:00:00 MEDICAID PENDING PENDING 2021 00:00:00 MEDICAID OF [place] [id number] 2021 00:00:00 Problems Condition Condition Condition Status Onset Resolution Last Treating Co mments Source Name Details Category Date Date Treatment Clinician Date Encounter Encounter Disease Active Uni vers for IUD for IUD 6-23 [place] Obesity Obesity Disease Active Univers (BMI (BMI 6-23 ity of 30-39.9) 30-39.9) 00:00: [place] 00 [facility] Branch Routine Routine Disease Active Univers 6-02 [place] of follow[place] [facility] [place] Perineal Perineal Disease Active Unive rs laceration laceration 5-12 it y of with with 00:00: [place] delivery, delivery, 00 Medi joanne third third Branch degree degree Dermoid Dermoid Disease Active Univers cyst cyst 5-11 ity of 00:00: [place] 00 [facility] IUD check IUD check Disease Active Uni vers up up 6-22 ity of 00:00: [place] 00 [facility] Allergies, Adverse Reactions, Alerts Allergy Allergy Status Severity Reaction(s) Onset Inactive Treating Comm ents Source Name Type Date Date Clinician No Known DA Active U [facility] All[facility]ie 3-16 [facility] [facility] Social History Social Habit Start Date Stop Date Quantity Comments Source History SDOH University o f Alcohol Frequency [facility] edical Branch History SDNM University o f Alcohol Std [place] Medical Drinks Branch History [facility] University o f Alcohol Binge [place] Medic al Branch Exposure to 2022-06-29 2022-07-09 Not sure [place] of SARS-CoV-2 00:00:00 09:08:00 [facility] (event) Branch Alcohol intake 2022-05-03 2022-05-03 Ex-drinker University 00:00:00 00:00:00 (finding) [facility] Alcohol Comment 2021-05-02 2021-05-02 socially Universit y of 00:00:00 00:00:00 [facility] Tobacco use and 2017-11-07 2017-11-07 Smokeless tobacco Un iversity of exposure 00:00:00 00:00:00 non-user [facility] Sex Ass[birth year] At [birth year] Universit y of 00:00:00 00:00:00 [facility] Smoking Status Start Date Stop Date Source Never smoked tobacco [facility] Medications Ordered Filled Start Stop Current Ordering Indication Dosage Frequency Signature Comments Components Source Medication Medication Date Date Medication? Clinician (SIG) Name Name Yes [id number] 1{tbl} Take 1 U nivers vitamin 5-13 tablet by ity of w/FA tablet 00:00: mouth [place] 00 daily. Medical Branch docusate Yes [id number] 200mg Take 2 Un sharonda 100 mg 5-13 capsules ity of capsule 00:00: by mouth [place] 00 once daily Medical as needed Branch for Constipati on. ferrous Yes [id number] 325mg Take 1 Uni vers sulfate 325 5-13 tablet by ity of mg (65 mg 00:00: mouth 2 [place] iron) 00 (two) Medical tablet times Branch daily. ibuprofen Yes [id number] 600mg Take 1 U nivers 600 mg 5-13 tablet by ity of tablet 00:00: mouth [place] 00 every 6 Medical (six) Branch hours as needed (Pain). Take with food or milk. norethindro Yes [id number] .35mg Take 1 Univers ne 0.35 mg 5-13 tablet by ity of tablet 00:00: mouth [place] 00 daily. Medical Branch ascorbic Yes [id number] 500mg Take 1 U nivers acid, 4-21 tablet by ity of vitamin C, 00:00[place] 500 mg 00 (three) Medical tablet times Branch daily. ferrous Yes [id number] 325mg Take 1 Un sharonda sulfate 325 4-21 tablet by ity of mg (65 mg 00:00: mouth 2 [place] iron) 00 (two) Medical tablet times Branch daily. proMETHazin 2020-11 Yes Univer s e 25 mg 1-23 ity of tablet 00:00: [place] 00 Medical Branch doxylamine- 2020-11 Yes [id number] 1{tbl} Take 1 Univers pyridoxine, 1-17 tablet by ity of vit B6, 00:00: mouth 4 [place] (DICLEGIS) 00 (four) Medical 10-10 mg times Branch per tablet daily. Miscellaneo Yes [id number] Use as Univers Medical 08-07 directed ity o f Supply 00:00: [place] (BLOOD 00 Medical PRESSURE Branch CUFF) Misc 2020-0 Yes [id number] 1{packe Take 1 Univers vit 9-17 t} Packet by ity of 33-iron-fol 00:00: mouth [place] ic-dha 00 daily. Medical (SELECT-OB Branch + DHA) 29 mg iron-1 mg -250 mg combo pack Immunizations Ordered Filled Immunization Date Status Comments Sourc e Immunization Name Name TDAP 2022-01-03 Completed [facility] 00:00:00 [facility] TDAP 2018-10-11 Completed [facility] 00:00:00 [facility] Influenza Virus 2017-11-07 Completed [facility] y of Vaccine Quad IM 3+ 00:00:00 [facility] Vital Signs Vital Name Observation Time Observation Value Comments Source Systolic blood 2022-07-09 14:09:00 117 mm[Hg] Univer sity of [facility] Diastolic blood 2022-07-09 14:09:00 79 [facility][Hg] [facility] 2022-07-09 14:09:00 73 /min [facility] Respiratory rate 2022-07-09 14:09:00 18 /min [facility] Body weight 2022-07-09 14:09:00 94.257 kg [facility] BMI 2022-07-09 14:09:00 36.81 kg/m2 [facility] Procedures This patient has no known procedures. Encounters Start End Encounter Admission Attending Care Care Encounter Source Date/Time Date/Time Type Type Clinicians Facility Department ID 2022-02-14 Outpatient X [facility] [id number] Univers 08:59:58 ity of [facility] 2021-11-19 Outpatient X [facility] [id number] Univers 20:16:35 ity of [facility] 2021-09-08 Emergency [facility] [id number] Univers 05:39:18 ity of [facility] 2021-09-07 Emergency [facility] [id number] Univers 11:24:[facility] 2022-07-09 2022-07-09 Outpatient R CATRACHO [facility] [id number] Univers 09:00:00 09:23:32 BARBIE [place] o [facility] 2022-07-09 2022-07-09 [facility] 1.2.840.114 [id number] Univers 09:00:00 09:23:32 Visit Barbie R SENIOR SOLUTIONS ENGINEER 350.1.13.10 ity [facility] 4.2.7.2.686 [place] as MATERNAL [id number] [facility] & CHILD [address] [place] [address] 2022-06-21 2022-06-21 Outpatient R AKINSIPE, [facility] [id number] Univers 16:00:00 16:00:00 ALAN mossy o [facility] 2022-06-14 2022-06-14 Outpatient R AKINDEBORAHPE, [facility] [id number] Univers 08:15:00 08:15:00 ALAN mossy o [facility] 2022-05-03 2022-05-03 Outpatient R AKINPUMA, [facility] [id number] Univers 10:00:00 10:37:29 ALAN davenport o [facility] 2022-05-03 2022-05-03 Office [facility] 1.2.180.742 [id number] Univers 10:00:00 10:37:29 Visit Alan Je SENIOR SOLUTIONS ENGINEER 350.1.13.10 ity of [facility] 4.2.7.2.686 [place] as MATERNAL [id number] [facility] & CHILD [address] [place] [address] 2022-05-03 2022-05-03 Outpatient Maria Fernanda HAYDEN [facility] [id number] Univers 10:30:00 10:30:00 XIANGNDA ity o [facility] 2022-05-03 2022-05-03 Outpatient Maria Fernanda HAYDEN [facility] [id number] Univers 10:30:00 10:30:00 XIANGNDA ity o [facility] 2022-05-03 2022-05-03 Outpatient Maria Fernanda HAYDEN [facility] [id number] Univers 10:30:00 10:30:00 XIANGNDA ity o [facility] 2022-05-03 2022-05-03 Outpatient Maria Fernanda HAYDEN [facility] [id number] Univers 10:30:00 10:30:00 BARBIE ity o [facility] 2022-05-03 2022-05-03 Outpatient R CATRACHO [facility] [id number] Univers 10:30:00 10:30:00 CHAROA isay o f [facility] 2022-05-03 2022-05-03 Outpatient R AKINPUMA, [facility] [id number] Univers 10:00:00 10:00:00 ALAN ity o f [facility] 2022-05-03 2022-05-03 Orders Doctor TRISTAN 1.2.840.114 [id number] Univers 00:00:00 00:00:00 Only Unassigned, CHRISTIANO 350.1.13.10 ity of Golf [facility] 4.2.7.2.686 Osman as [id number] [facility] 009 Branch 2022-04-12 2022-04-12 Outpatient R AKINDEBORAHMARCIN, [facility] [id number] Univers 10:30:00 10:53:25 ALAN isay o [facility] 2022-04-12 2022-04-12 Routine [facility] 1.2.871.051 [id number] Univers 10:30:00 10:53:25 Alan Wooten SENIOR SOLUTIONS ENGINEER 350.1.13.10 ity of Visit [facility] 4.2.7.2.686 [place] as MATERNAL [id number] Med ical & [place]ILD [address] [place] [address] 2022-03-21 2022-03-23 Inpatient X LUIS GARCIA [facility] [id number] Univers 19:04:00 13:32:00 LUIS GARCIA itlc of [facility] 2022-03-21 2022-03-23 Hospital TRISTAN Garcia 1.2.840.114 [id number] Univers 19:04:00 13:32:00 Encounter Luis ALVARADO 350.1.13.10 ity of [facility] 4.2.7.2.686 [place] as [id number] [facility] 133 Branch 2022-03-21 2022-03-22 Anesthesia Ctaalina Woodard 1.2.84 0.114 [id number] Univers 23:12:00 06:28:00 Event Koutrouvelagatha, Steffanie CHRISTIANO 350.1.1 3.10 ity of [facility] 4.2.7.2.686 [place] as [phone] [facility] 132 Branch 2022-03-21 2022-03-21 Orders Doctor TRISTAN 1.2.840.114 [id number] Univers 00:00:00 00:00:00 Only Unassigned, CHRISTIANO 350.1.13.10 ity of Golf [facility] 4.2.7.2.686 [place] as [id number] [facility] 009 Branch 2022-03-14 2022-03-14 Outpatient R AKINSIPE, [facility] [id number] Univers 13:00:00 13:19:04 ALAN davenport o [facility] 2022-03-14 2022-03-14 Routine Akinsipe, [facility] 1.2.624.940 [id number] Univers 13:00:00 13:19:04 Alan C SENIOR SOLUTIONS ENGINEER 350.1.13.10 ity of Visit [facility] 4.2.7.2.686 [place] as MATERNAL [id number] [facility] ical & CHILD [address] [place] [address] 2022-03-10 2022-03-10 Outpatient X SHAKIRA DONOVAN [facility] [id number] Univers 18:17:00 19:36:00 ity of [facility] 2022-03-10 2022-03-10 Emergency Hernando Galindon [facility] 1.2.840.114 [id number] Univers 18:17:00 19:36:00 [place] 350.1.13.10 i ty [facility] 4.2.7.2.686 [place] [id number] [facility] 083 Branch 2022-03-09 2022-03-09 Outpatient R AKINSIPE, [facility] [id number] Univers 09:15:00 13:39:33 ALAN ity o f [facility] 2022-03-09 2022-03-09 Routine Akinsipe, [facility] 1.2.420.832 [id number] Univers 09:15:00 13:39:33 Alan C SENIOR SOLUTIONS ENGINEER 350.1.13.10 ity of Visit REGIONAL 4.2.7.2.686 [place] as MATERNAL [id number] [facility] & CHILD [address] [place] [address] 2022-03-09 2022-03-09 Telephone Catracho [facility] 1.2.014.758 [id number] Univers 00:00:00 00:00:00 Tereelba R SENIOR SOLUTIONS ENGINEER 350.1.13.10 ity of REGIONAL 4.2.7.2.686 [place] as MATERNAL [id number] [facility] & CHILD [address] [place] [address] 2022-03-07 2022-03-07 [facility] [id number] Univers 09:45:00 10:02:34 ALAN samayoa [facility] 2022-03-07 2022-03-07 Routine [facility] 1.2.838.864 [id number] Univers 09:45:00 10:02:34 Alan Wooten SENIOR SOLUTIONS ENGINEER 350.1.13.10 ity of Visit REGIONAL 4.2.7.2.686 [place] as MATERNAL [id number] [facility] & CHILD [address] [place] [address] 2022-03-07 2022-03-07 Outpatient R JORGE [facility] [id number] Univers 09:45:00 09:45:00 ALAN samayoa [facility] 2022-03-02 2022-03-02 Outpatient R CATRACHO [facility] [id number] Univers 13:00:00 13:00:00 BARBIE villagomez [facility] 2022-03-02 2022-03-02 Merchant Tailor Lab, Ang-Rmchp [facility] 1.2.840. 114 [id number] Univers 13:00:00 13:00:00 Visit Catracho Barbie Irving SENIOR SOLUTIONS ENGINEER 350.1.13.10 ity of REGIONAL 4.2.7.2.686 [place] as MATERNAL [id number] [facility] & CHILD [address] [place] [address] 2022-03-01 2022-03-01 Telephone [facility] 1.2.840.114 [id number] Univers 00:00:00 00:00:00 Alan C SENIOR SOLUTIONS ENGINEER 350.1.13.10 ity of REGIONAL 4.2.7.2.686 [place] as MATERNAL [id number] [facility] & CHILD [address] [place] [address] 2022-02-28 2022-02-28 Routine Akinsipe, [facility] 1.2.229.113 [id number] Univers 10:00:00 11:00:46 Alan C SENIOR SOLUTIONS ENGINEER 350.1.13.10 ity of Visit REGIONAL 4.2.7.2.686 [place] as MATERNAL [id number] [facility] & CHILD [address] [place] [address] 2022-02-28 2022-02-28 Outpatient R AKINSIPE, [facility] [id number] Univers 10:00:00 11:00:46 ALAN ity o f [facility] 2022-02-28 2022-02-28 Outpatient R AKINSIPE, [facility] [id number] Univers 10:00:00 10:00:00 ALAN ity o f [facility] 2022-02-28 2022-02-28 Outpatient R AKINSIPE, [facility] [id number] Univers 10:00:00 10:00:00 ALAN ity o f [facility] 2022-02-21 2022-02-21 Outpatient R AKINSIPE, [facility] [id number] Univers 09:45:00 10:31:33 ALAN ity o f [facility] 2022-02-21 2022-02-21 Routine Akinsipe, [facility] 1.2.771.345 [id number] Univers 09:45:00 10:31:33 Alan C SENIOR SOLUTIONS ENGINEER 350.1.13.10 ity of Visit REGIONAL 4.2.7.2.686 [place] as MATERNAL [id number] [facility] & CHILD [address] [place] [address] 2022-02-19 2022-02-19 Merchant Tailor 1Kim Room [facility] 1.2. 840.114 [id number] Univers 09:45:00 10:23:16 Visit Sylvester Husain SENIOR SOLUTIONS ENGINEER 350.1.13.10 ity of REGIONAL 4.2.7.2.686 [place] as MATERNAL [phone] Med ical & CHILD [address] [facility] 2022-02-19 2022-02-19 Outpatient P FRANCI [facility] [id number] Univers 09:45:00 09:45:00 [facility] [facility] 2022-02-14 2022-02-14 Outpatient X ADUM, [facility] [id number] Univers 06:54:00 08:55:00 KELSIE ity [facility] 2022-02-14 2022-02-14 Emergency Adum, [facility] 1.2.630.571 [id number] Univers 06:54:00 08:55:00 Kelsie SAMUEL 350.1.13.10 ity [facility] 4.2.7.2.686 [id number] [address] 2022-02-12 2022-02-12 Telemedici Faculty, [facility] 1.2.840.114 [id number] Univers 08:30:00 08:45:00 ne Visit Brittany Buchanan SENIOR SOLUTIONS ENGINEER 350.1.13.10 ity of REGIONAL 4.2.7.2.686 [place] as MATERNAL [id number] [facility] & CHILD [address] [place] [address] 2022-02-12 2022-02-12 Outpatient Maria Fernanda BUCHANAN [facility] [id number] Univers 08:30:00 08:30:00 BRITTANY lc [facility] 2022-01-26 2022-01-26 Outpatient R JORGE [facility] [id number] Univers 08:00:00 08:49:52 ALAN ity o f [facility] 2022-01-26 2022-01-26 Routine Akinsimarcin, [facility] 1.2.760.602 [id number] Univers 08:00:00 08:49:52 Alan C SENIOR SOLUTIONS ENGINEER 350.1.13.10 ity of Visit [facility] 4.2.7.2.686 [place] as MATERNAL [id number] [facility] & CHILD [address] [place] [address] 2022-01-23 2022-01-23 Outpatient R KING LEILANI [facility] [id number] Univers 13:40:00 14:01:00 ALDAIR ity of [facility] 2022-01-23 2022-01-23 Telephone [facility] 1.2.559.890 [id number] Univers 00:00:00 00:00:00 Xiangkelsiearthur R SENIOR SOLUTIONS ENGINEER 350.1.13.10 ity of REGIONAL 4.2.7.2.686 [place] as MATERNAL [id number] [facility] CHILD [address] [place] [address] 2022-01-17 2022-01-17 [facility] [id number] Univers 08:00:00 08:00:00 ALAN ity o [facility] 2022-01-12 2022-01-12 Outpatient [facility] [id number] Univers 12:45:00 13:47:37 ALAN ity o f [facility] 2022-01-12 2022-01-12 [facility] 1.2.002.835 [id number] Univers 12:45:00 13:47:37 Alan C SENIOR SOLUTIONS ENGINEER 350.1.13.10 ity of Visit REGIONAL 4.2.7.2.686 [place] as MATERNAL [id number] [facility] & CHILD [address] [place] [address] 2022-01-10 2022-01-10 Abstract [facility] 1.2.840.114 [id number] Univers 00:00:00 00:00:00 Alan C SENIOR SOLUTIONS ENGINEER 350.1.13.10 ity of REGIONAL 4.2.7.2.686 [place] as MATERNAL [id number] [facility] & CHILD [address] [place] [address] 2022-01-09 2022-01-09 Merchant Tailor 1, [facility] Room [facility] 1.2. 840.114 [id number] Univers 15:30:00 16:09:04 Visit Conrad Courtney SENIOR SOLUTIONS ENGINEER 350.1.13.10 ity of REGIONAL 4.2.7.2.686 [place] as MATERNAL [id number] [facility] ical & CHILD [address] [place] [address] 2022-01-09 2022-01-09 Outpatient [facility] [id number] Univers 15:30:00 15:30:00 CONRAD ity of [facility] 2022-01-08 2022-01-08 Telephone [facility] 1.2.840.114 [id number] Univers 00:00:00 00:00:00 Alan C SENIOR SOLUTIONS ENGINEER 350.1.13.10 ity of [facility] 4.2.7.2.686 [place] as MATERNAL [id number] [facility] CHILD [address] [place] [address] 2022-01-03 2022-01-03 Outpatient [facility] [id number] Univers 08:00:00 09:19:11 ALAN davenport o [facility] 2022-01-03 2022-01-03 Routine [facility] 1.2.047.411 [id number] Univers 08:00:00 09:19:11 Alan C SENIOR SOLUTIONS ENGINEER 350.1.13.10 ity of Visit [facility] 4.2.7.2.686 [place]man as MATERNAL [id number] [facility] & CHILD [address] [place] [address] 2022-01-03 2022-01-03 [facility] [id number] Univers 08:00:00 08:00:00 ALAN davenport o [facility] 2022-01-03 2022-01-03 Orders Doctor HUDSON 1.2.840.114 [id number] Univers 00:00:00 00:00:00 Only Unassigned, CHRISTIANO 350.1.13.10 ity of Golf [facility] 42.7.2.686 Osman as [id number] [address] 2021-12-06 2021-12-06 Outpatient R AKINSIPE, [facility] [id number] Univers 08:00:00 08:43:51 ALAN davenport o [facility] 2021-12-06 2021-12-06 Routine [facility] 1.2.900.537 [id number] Univers 08:00:00 08:43:51 Alan C SENIOR SOLUTIONS ENGINEER 350.1.13.10 ity of Visit [facility] 4.2.7.2.686 Osman as MATERNAL [id number] Med ical & CHILD [address] [place] [address] 2021-12-05 2021-12-05 Outpatient R JORGE [facility] [id number] Univers 10:30:00 10:30:00 ALAN isalc o f [facility] 2021-11-19 2021-11-19 Outpatient X [facility] [id number] Univers 13:33:00 18:55:00 ity of [facility] 2021-11-19 2021-11-19 Emergency MalikKayleigh [facility] 1.2.840.114 [id number] Univers 13:33:00 18:55:00 [facility] 350.1.13.10 i ty of [place] 4.2.7.2.686 [facility] [id number] [address] 2021-11-13 2021-11-13 Outpatient R ROSELYN [facility] [id number] Univers 15:30:00 15:37:22 ANURAG davneport [facility] 2021-11-13 2021-11-13 [facility]ine [facility] 1.2.835.563 [id number] Univers 15:30:00 15:37:22 Anurag Smith SENIOR SOLUTIONS ENGINEER 350.1.13.10 i ty of [facility] 4.2.7.2.686 [place]man as MATERNAL [id number] [facility] & [address] 2021-11-13 2021-11-13 Telephone [facility] 1.2.398.431 [id number] Univers 00:00:00 00:00:00 Barbie R SENIOR SOLUTIONS ENGINEER 350.1.13.10 ity of [facility] 4.2.7.2.686 [place] as MATERNAL [id number] [facility] & CHILD [address] [place] [address] 2021-11-08 2021-11-08 Outpatient R ROSELYN [facility] [id number] Univers 09:30:00 09:30:00 ANURAG davenport [facility] 2021-11-07 2021-11-07 Outpatient R ROSELYN [facility] [id number] Univers 16:00:00 16:34:24 ANURAG davenport [facility] 2021-11-07 2021-11-07 Routine [facility] 1.2.469.400 [id number] Univers 16:00:00 16:34:24 Anurag N SENIOR SOLUTIONS ENGINEER 350.1.13.10 i ty of Visit REGIONAL 4.2.7.2.686 [place] as MATERNAL [id number] [facility] CHILD [address] [place] [address] 2021-11-06 2021-11-06 Merchant Tailor Ultrasound, [facility] 1.2 .840.114 [id number] Univers 09:30:00 10:45:00 Visit Sylvester Husain SENIOR SOLUTIONS ENGINEER 350.1.13.10 ity of REGIONAL 4.2.7.2.686 [place] as MATERNAL [id number] [facility] CHILD [address] [place] [address] 2021-11-06 2021-11-06 Outpatient P FRANCI [facility] [id number] Univers 09:30:00 09:30:00 SYLVESTER [facility] 2021-11-06 2021-11-06 Abstract Catracho [facility] 1.2.840.114 [id number] Univers 00:00:00 00:00:00 Barbie Irving SENIOR SOLUTIONS ENGINEER 350.1.13.10 ity of REGIONAL 4.2.7.2.686 [place] as MATERNAL [phone] [facility] & [address] 2021-10-25 2021-10-25 [facility] 1.2.840.114 [id number] Univers 00:00:00 00:00:00 Anurag Smith SENIOR SOLUTIONS ENGINEER 350.1.13.10 it y of REGIONAL 4.2.7.2.686 [place] as MATERNAL [phone] [facility] & CHILD [address] [place] [address] 2021-10-12 2021-10-12 [facility] [id number] Univers 08:45:00 09:21:17 ANURAG davenport [facility] 2021-10-12 2021-10-12 [facility] 1.2.473.288 [id number] Univers 08:37:39 09:21:17 Anurag N SENIOR SOLUTIONS ENGINEER 350.1.13.10 i ty of Visit REGIONAL 4.2.7.2.686 [place] as MATERNAL [phone] Med ical & CHILD [address] [place] [address] 2021-10-03 2021-10-03 [facility] 1.2.840.114 [id number] Univers 00:00:00 00:00:00 Anurag Smith SENIOR SOLUTIONS ENGINEER 350.1.13.10 it y of [facility] 4.2.7.2.686 [place] MATERNAL [phone] Med ical & CHILD [address] [place] [address] 2021-09-27 2021-09-27 Outpatient Maria Fernanda [facility] [id number] Univers 10:45:00 11:50:25 ROULA davenport o [facility] 2021-09-27 2021-09-27 Outpatient Maria Fernanda [facility] [id number] Univers 10:45:00 11:50:25 ROULA davenport o [facility] 2021-09-27 2021-09-27 Routine Provider, Sabrina [facility] 1 .2.840.114 [id number] Univers 10:38:13 11:50:25 Roula Seay SENIOR SOLUTIONS ENGINEER 350.1.13 .10 ity of Visit REGIONAL 4.2.7.2.686 [place] MATERNAL [phone] Med ical & CHILD [address] [place] [address] 2021-09-27 2021-09-27 [facility]phone [facility] 1.2.840.114 [id number] Univers 00:00:00 00:00:00 Roula Samayoa SENIOR SOLUTIONS ENGINEER 350.1.13.10 ity of REGIONAL 4.2.7.2.686 [place] MATERNAL [phone] Med ical & CHILD [address] [place] [address] 2021-09-25 2021-09-25 Emergency X JACK, [facility] ERT [id number] Univers 20:02:00 21:44:00 SETH davenport [facility] 2021-09-25 2021-09-25 Emergency Jack, [facility] 1.2.840.114 [id number] Univers 20:02:00 21:44:00 [facility] 350.1.13.10 i ty [facility] 4.2.7.2.686 [facility] [id number] [facility] [address] [place] 2021-09-15 2021-09-15 Orders Doctor TRISTAN 1.2.840.114 [id number] Univers 00:00:00 00:00:00 Only Unassigned, CHRISTIANO 350.1.13.10 ity of Golf [facility] 4.2.7.2.686 [place] as [phone] [facility] [address] [place] 2021-09-14 2021-09-14 Merchant Tailor Ultrasound[facility] 1.2 .840.114 [id number] Univers 08:33:37 09:03:37 Visit Anurag Dempsey SENIOR SOLUTIONS ENGINEER 350.1.13.10 ity of Sumit Smallwood [facility] 4.2.7.2 .686 [place] MATERNAL [phone] Med ical & CHILD 369 [facility] 2021-09-14 2021-09-14 Routine Roselyn [facility] 1.2.555.326 [id number] Univers 08:05:38 08:33:43 Anurag Smith SENIOR SOLUTIONS ENGINEER 350.1.13.10 i ty of Visit REGIONAL 4.2.7.2.686 [place] as MATERNAL [phone] Med ical & CHILD [address] [place] [address] 2021-09-14 2021-09-14 Outpatient P CL [facility] [id number] Univers 08:30:00 08:30:00 SUMIT ity of [facility] 2021-09-13 2021-09-13 Telephone Roselyn [facility] 1.2.840.114 [id number] Univers 00:00:00 00:00:00 Anurag Smith SENIOR SOLUTIONS ENGINEER 350.1.13.10 it y of REGIONAL 4.2.7.2.686 [place] MATERNAL [id number] Med ical & CHILD [address] [place] [address] 2021-08-29 2021-08-29 Patient Roselyn [facility] 1.2.023.082 [id number] Univers 00:00:00 00:00:00 Secure Msg Anurag Smith SENIOR SOLUTIONS ENGINEER 350.1.13.10 ity of [facility] 4.2.7.2.686 [place] as MATERNAL [id number] Med ical & CHILD 107 [facility] 2021-08-29 2021-08-29 Telephone Roselyn [facility] 1.2.840.114 [id number] Univers 00:00:00 00:00:00 Anurag Smith SENIOR SOLUTIONS ENGINEER 350.1.13.10 it y of REGIONAL 4.2.7.2.686 [place] MATERNAL [phone] Med ical & CHILD 107 [facility] 2021-08-28 2021-08-28 Telephone Roselyn [facility] 1.2.840.114 [id number] Univers 00:00:00 00:00:00 Anurag Smith SENIOR SOLUTIONS ENGINEER 350.1.13.10 it y of REGIONAL 4.2.7.2.686 [place] MATERNAL [id number] Med ical & CHILD [address] [place] [address] 2021-08-21 2021-08-21 Routine Provider, Sabrina [facility] 1 .2.840.114 [id number] Univers 09:53:39 10:39:30 Roula Seay SENIOR SOLUTIONS ENGINEER 350.1.13 .10 ity of Visit REGIONAL 4.2.7.2.686 [place] MATERNAL [phone] Med ical & CHILD [address] [place] [address] 2021-08-21 2021-08-21 Outpatient R [facility] [id number] Univers 10:00:00 10:00:00 ity of [facility] 2021-08-15 2021-08-15 Merchant Tailor Ultrasound, Dada [facility] 1.2 .840.114 [id number] Univers 08:23:20 08:53:20 Visit Brittany Buchanan SENIOR SOLUTIONS ENGINEER 350.1.13.10 ity of REGIONAL 4.2.7.2.686 [place] MATERNAL [phone] Med ical & CHILD 369 [facility] 2021-08-15 2021-08-15 Outpatient P [facility] [id number] Univers 08:30:00 08:30:00 ity of [facility] 2021-08-15 2021-08-15 Abstract Roselyn [facility] 1.2.840.114 [id number] Univers 00:00:00 00:00:00 Anurag Smith SENIOR SOLUTIONS ENGINEER 350.1.13.10 it y of REGIONAL 4.2.7.2.686 [place] MATERNAL [phone] Med ical & CHILD 107 [facility] 2021-08-07 2021-08-07 Routine Faculty, Jm Wilkes [facility] 1.2 .840.114 [id number] Univers 10:29:39 11:23:56 Brittany Buchanan SENIOR SOLUTIONS ENGINEER 350.1.13.10 ity of Visit REGIONAL 4.2.7.2.686 [place] MATERNAL [phone] Med ical & CHILD [address] [place] [address] 2021-08-07 2021-08-07 Outpatient R [facility] [id number] Univers 10:30:00 10:30:00 ity of [facility] 2021-07-28 2021-07-28 Telephone Catracho [facility] 1.2.996.103 [id number] Univers 00:00:00 00:00:00 Roshunda R SENIOR SOLUTIONS ENGINEER 350.1.13.10 ity of REGIONAL 4.2.7.2.686 [place] as MATERNAL [id number] [facility] & CHILD [address] [place] [address] 2021-07-27 2021-07-27 Merchant Tailor Lab, Rosalesdaphney [facility] 1.2.840. 114 [id number] Univers 08:11:06 09:40:38 Visit Alan Patel SENIOR SOLUTIONS ENGINEER 350.1.13. 10 ity of REGIONAL 4.2.7.2.686 [place] as MATERNAL [phone] [facility] ical & CHILD [address] [place] [address] 2021-07-27 2021-07-27 Outpatient R JORGE [facility] [id number] Univers 07:45:00 07:45:00 ALAN mossy o f [facility] 2021-07-24 2021-07-24 Initial Catracho [facility] 1.2.840.114 [id number] Univers 09:02:22 10:05:44 Roshunda R SENIOR SOLUTIONS ENGINEER 350.1.13.10 ity of Visit REGIONAL 4.2.7.2.686 [place] as MATERNAL [phone] Med ical & CHILD [address] [place] [address] 2021-07-24 2021-07-24 [facility] 1.2.840.114 [id number] Univers 09:02:22 10:05:44 Xiangnda R SENIOR SOLUTIONS ENGINEER 350.1.13.10 ity of Visit REGIONAL 4.2.7.2.686 [place] MATERNAL [phone] [facility] & CHILD [address] [place] [address] 2021-07-24 2021-07-24 Outpatient [facility] [id number] Univers 09:00:00 09:00:00 XIANGNDA ity o f [facility] 2021-07-24 2021-07-24 Orders Doctor TRISTAN 1.2.840.114 [id number] Univers 00:00:00 00:00:00 Only Unassigned, CHRISTIANO 350.1.13.10 ity of Golf HOSPITAL 4.2.7.2.686 [place] as [phone] [address] 2021-07-24 2021-07-24 Orders Doctor TRISTAN 1.2.840.114 [id number] Univers 00:00:00 00:00:00 Only Unassigned, CHRISTIANO 350.1.13.10 ity of [place] HOSPITAL 4.2.7.2.686 [place] as [id number] [address] 2021-05-04 2021-05-04 Office [facility] 1.2.840.114 [id number] Univers 15:28:23 16:08:36 Visit Charoa R SENIOR SOLUTIONS ENGINEER 350.1.13.10 ity of REGIONAL 4.2.7.2.686 [place] as MATERNAL [phone] [facility] & CHILD [address] [place] [address] 2021-05-04 2021-05-04 Outpatient [facility] [id number] Univers 15:30:00 15:30:00 XIANGNDA ity o f [facility] 2021-05-02 2021-05-02 Office [facility] 1.2.840.114 [id number] Univers 10:45:41 11:52:36 Visit Xiangnda R SENIOR SOLUTIONS ENGINEER 350.1.13.10 ity of REGIONAL 4.2.7.2.686 [place] MATERNAL [id number] Med ical & CHILD [address] [place] [address] 2021-05-02 2021-05-02 Outpatient R CATRACHO [facility] [id number] Univers 11:00:00 11:00:00 BARBIE davenport o hernando [facility] 2021-05-02 2021-05-02 Orders Doctor HUDSON 1.2.840.114 [id number] Univers 00:00:00 00:00:00 Only UnassignedCHRISTIANO 350.1.13.10 ity of [place] [facility] 4.2.7.2.686 [place] as [phone] [address] 2020-05-18 2020-05-18 Emergency [facility] 1.2.389.448 [id number] Univers 18:39:45 22:50:00 Leona Samuel 350.1.13.10 i ty of [place] 4.2.7.2.686 [facility] [id number] [address] 2020-01-07 2020-01-07 Emergency [facility] 1.2.840.114 [id number] Univers 10:02:28 11:27:00 Kojo Samuel 350.1.13.10 i ty of [place] 4.2.7.2.686 [facility] [phone] [address] 2020-01-07 2020-01-07 Orders Doctor HUDSON 1.2.840.114 [id number] Univers 00:00:00 00:00:00 Only UnassignedCHRISTIANO 350.1.13.10 ity of [place] [facility] 4.2.7.2.686 [place] as [id number] [address] 2020-01-03 2020-01-03 Emergency [facility] 1.2.175.902 [id number] Univers 20:26:25 21:35:00 Antonio Samuel 350.1.13.10 ity of [place] 4.2.7.2.686 [facility] [id number] [address] 2020-01-03 2020-01-03 Orders Doctor HUDSON 1.2.840.114 [id number] Univers 00:00:00 00:00:00 Only UnassignedKATHERINEY 350.1.13.10 ity of [place] [facility] 4.2.7.2.686 [place] as [phone] [facility] [address] Results This patient has no known results.
--- NOTE | 2023-01-08 12:09 | RAD REPORT ---
EXAM DESCRIPTION: US - Transvaginal OB. Pelvis complete - 01/08/2023 11:34 am CLINICAL HISTORY: Cramping. . Rising beta HCG level COMPARISON: Pelvic ultrasound 01/04/2023 TECHNIQUE: Sonographic grayscale and color flow images of the pelvis obtained through both transabd ominal and transvaginal approaches. FINDINGS: Anteverted uterus, with IUD in satisfactory position. Uterus measures 9.1 centimeter in le ngth. No focal myometrial lesions. Endometrial stripe measures 8 millimeter in thickness. No abnormal hypervascularity or suspicious end ometrial lesions. No evidence of an intrauterine . Right ovary measures 9.5 x 6.1 x 8.6 centimeter, again with a dominant heterogeneous mass with predom inantly echogenic components, again most suggestive of a teratoma. The left ovary measures 3.0 x 3.3 x 2.5 centimeter. No other suspicious adnexal masses. Preserved vas cularity and flow along the ovarian tissues. No free fluid in the pelvis. IMPRESSION: No evidence of intrauterine or findings to suggest an ectopic . Known right ovarian teratoma. No suspicious abnormalities in the uterus or endometrium. IUD in satisfactory position.
--- NOTE | 2023-01-08 13:23 | ER ---
Nurse's Notes [facility] Name: Lamberto Saravia Age: 27 yrs Sex: Female : 1995 Arrival Date: 01/08/2023 Time: 09:17 Bed 7 Private MD: Diagnosis: Lower abdominal pain, unspecified;Inapropriate Hcg elevation Presentation: 01/08 09:34 Chief complaint: Patient states: she was evaluated in the ED a few days ago where she ap3 had a positive test, but her HCG was only in the 30's. patient was informed to come back in a few days for a re-evaluation of her HCG levels. Coronavirus screen: At this time, the client does not indicate any symptoms associated with coronavirus-19. Ebola Screen: No symptoms or risks identified at this time. Initial Sepsis Screen: Does the patient meet any 2 criteria? No. Patient's initial sepsis screen is negative. Does the patient have a suspected source of infection? No. Patient's initial sepsis screen is negative. Risk Assessment: Do you want to hurt yourself or someone else? Patient reports no desire to harm self or others. Onset of symptoms is unknown. 09:34 Method Of Arrival: Ambulatory ap3 09:34 Acuity: JERMAINE 3 ap3 Triage Assessment: 09:37 General: Appears in no apparent distress. Behavior is calm, cooperative, appropriate ap3 for age. Pain: Denies pain. Neuro: Level of Consciousness is awake, alert, obeys commands, Oriented to person, place, time. Cardiovascular: Patient's skin is warm and dry. Respiratory: Airway is patent Respiratory effort is even, unlabored, Respiratory pattern is regular, symmetrical. : Reports cramping. 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 Flu vaccine is not up to date. - Social history:: Smoking status: Patient denies any tobacco usage or history of. Screenin:37 [facility] ED Fall Risk Assessment (Adult) History of falling in the last 3 months, ap3 including since admission No falls in past 3 months (0 pts). Abuse screen: Denies threats or abuse. Nutritional screening: No deficits noted. Tuberculosis screening: No symptoms or risk factors identified. Assessment: 13:15 Reassessment: No changes from previously documented assessment. Patient and/or family ll1 updated on plan of care and expected duration. Pain level reassessed. Patient is alert, oriented x 3, equal unlabored respirations, skin warm/dry/pink. 13:26 Reassessment: No changes from previously documented assessment. Patient and/or family ll1 updated on plan of care and expected duration. Pain level reassessed. Patient is alert, oriented x 3, equal unlabored respirations, skin warm/dry/pink. Vital Signs: 09:34 BP 133 / 92; Pulse 81; Resp 19; Temp 98.8; Pulse Ox 99% ; Weight 90.72 kg; Height 5 ft. ap3 3 in. (160.02 cm); 13:26 BP 118 / 81; Pulse 87; Resp 18; Pulse Ox 96% on R/A; ll1 09:34 Body Mass Index 35.43 (90.72 kg, 160.02 cm) ap3 ED Course: 09:17 Patient arrived in ED. am2 09:31 Bruno Avila DO is Attending Physician. ms3 09:36 Triage completed. ap3 09:37 Arm band placed on left wrist. ap3 09:58 HCG-Quantitative Sent. ss 11:31 Pelvis Complete In Process Unspecified. EDMS 11:36 Transvaginal OB In Process Unspecified. EDMS 13:15 Elroy Dye, RN is Primary Nurse. ll1 13:15 Patient placed in an exam room, on a stretcher. ll1 13:15 No provider procedures requiring assistance completed. ll1 13:16 Patient has correct armband on for positive identification. Bed in low position. Call ll1 light in reach. Cardiac monitoring not applicable on this patient. 13:27 Patient did not have IV access during this emergency room visit. ll1 Administered Medications: No medications were administered Medication: 13:15 VIS not applicable for this client. ll1 Outcome: 13:22 Discharge ordered by . ms3 13:27 Discharged to home ambulatory. ll1 13:27 Condition: stable 13:27 Discharge instructions given to patient, Instructed on discharge instructions, follow up and referral plans. Demonstrated understanding of instructions, follow-up care. 13:33 Patient left the ED. ll1 Signatures: Dispatcher [employer] EDPippa Andrews, RN RN ss Elsa Jackson am2 Elsa Thorne RN RN ap3 Elroy Dye RN RN ll1 Bruno Avila, DO BASSETT ms3
--- NOTE | 2023-01-08 13:23 | EDPHYS ---
Physician Documentation [facility] Name: Lamberto Saravia Age: 27 yrs Sex: Female : 1995 Arrival Date: 01/08/2023 Time: 09:17 Bed 7 Private MD: ED Physician Bruno Avila HPI: 01/08 09:44 This 27 yrs old Female presents to ER via Ambulatory with complaints of ms3 Abnormal Lab Results - HCG levels. 09:44 27-year-old female with no past medical history presents for repeat hCG level. Patient ms3 states she was seen in the emergency department 2 days ago and her hCG level was 33. Patient was instructed to return to the emergency department for repeat hCG levels.. 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 Flu vaccine is not up to date. - Social history:: Smoking status: Patient denies any tobacco usage or history of. ROS: 09:44 Constitutional: Negative for fever, and chills. Neck: Negative for injury, pain, and ms3 swelling, Cardiovascular: Negative for chest pain, and palpitations. Respiratory: Negative for shortness of breath, cough, wheezing, and pleuritic chest pain, Abdomen/GI: Negative for abdominal pain, nausea, vomiting, diarrhea, and constipation. 09:44 Abdomen/GI: Positive for cramping. 09:44 : Positive for vaginal bleeding. 09:44 All other systems are negative. Exam: 09:44 Constitutional: This is a well developed, well nourished patient who is awake, alert, ms3 and in no acute distress. Head/Face: Normocephalic, atraumatic. Neck: Trachea midline, no cervical lymphadenopathy. Supple, full range of motion without nuchal rigidity, or vertebral point tenderness. No Meningismus. Chest/axilla: Normal chest wall appearance and motion. Nontender with no deformity. Cardiovascular: Regular rate and rhythm with a normal S1 and S2. No gallops, murmurs, or rubs. Normal PMI, no JVD. No pulse deficits. Respiratory: Lungs have equal breath sounds bilaterally, clear to auscultation and percussion. No rales, rhonchi or wheezes noted. No increased work of breathing, no retractions or nasal flaring. Abdomen/GI: Soft, non-tender, with normal bowel sounds. No distension or tympany. No guarding or rebound. No evidence of tenderness throughout. Back: No spinal tenderness. No costovertebral tenderness. Full range of motion. Skin: Warm, dry with normal turgor. Normal color with no rashes, no lesions, and no evidence of cellulitis. MS/ Extremity: Pulses equal, no cyanosis. Neurovascular intact. Full, normal range of motion. Vital Signs: 09:34 BP 133 / 92; Pulse 81; Resp 19; Temp 98.8; Pulse Ox 99% ; Weight 90.72 kg; Height 5 ft. ap3 3 in. (160.02 cm); 13:26 BP 118 / 81; Pulse 87; Resp 18; Pulse Ox 96% on R/A; ll1 09:34 Body Mass Index 35.43 (90.72 kg, 160.02 cm) ap3 MDM: 09:36 Patient medically screened. ms3 09:44 Differential Diagnosis Miscarriage vs . ms3 10:46 ED course: Patient hCG 60. Will obtain US.. ms3 13:45 Data reviewed: vital signs, nurses notes, lab test result(s), radiologic studies, and ms3 as a result, I will discharge patient. Counseling: I had a detailed discussion with the patient and/or guardian regarding: the historical points, exam findings, and any diagnostic results supporting the discharge/admit diagnosis, lab results, radiology results, the need for outpatient follow up, to return to the emergency department if symptoms worsen or persist or if there are any questions or concerns that arise at home. ED course: Discussed inappropriate rise in hCG level with patient. Discussed ultrasound results with patient. Patient to follow-up with her OB in 2 to 3 days. Patient understands and agrees with plan. All questions were answered. Return precautions discussed include worsening symptoms, or any other concerns. On reevaluation patient is alert and oriented x4, no apparent distress, nontoxic, ambulatory number department, abdomen benign. 01/08 09:36 Order name: HCG-Quantitative; Complete Time: 10:37 ms3 01/08 11:31 Order name: Transvaginal OB; Complete Time: 13:08 EDMS 01/08 11:31 Order name: Pelvis Complete EDMS Administered Medications: No medications were administered Disposition Summary: 01/08/23 13:22 Discharge Ordered Location: Home ms3 Condition: Stable ms3 Diagnosis - Lower abdominal pain, unspecified ms3 - Inapropriate Hcg elevation ms3 Followup: ms3 - With: Private Physician - When: 2 - 3 days - Reason: Recheck today's complaints Discharge Instructions: - Discharge Summary Sheet ms3 - Abdominal Pain During ms3 Forms: - Medication Reconciliation Form ms3 - Thank You Letter ms3 - Antibiotic Education ms3 - Prescription Opioid Use ms3 Signatures: Dispatcher [employer] EDElsa Proctor RN RN ap3 Bruno Avila DO DO ms3 Corrections: (The following items were deleted from the chart) 11:07 10:46 OB Limited+US.RAD.BRZ ordered. EDMS EDMS 11:31 11:07 Transvaginal OB ordered. EDMS EDMS
[2023-01-08 14:42] VITALS: TEMP 97.9
[2023-01-08 14:43] VITALS: BP 118/81; O2SAT 96
--- NOTE | 2023-01-08 15:07 | RAD REPORT ---
EXAM DESCRIPTION: US - Ultrasound Pelvis Complete CLINICAL HISTORY: Cramping. . Rising beta HCG level COMPARISON: Pelvic ultrasound 01/04/2023 TECHNIQUE: Sonographic grayscale and color flow images of the pelvis obtained through both transabdo issac and transvaginal approaches. FINDINGS: Anteverted uterus, with IUD in satisfactory position. Uterus measures 9.1 centimeter in le ngth. No focal myometrial lesions. Endometrial stripe measures 8 millimeter in thickness. No abnormal hypervascularity or suspicious end ometrial lesions. No evidence of an intrauterine . Right ovary measures 9.5 x 6.1 x 8.6 centimeter, again with a dominant heterogeneous mass with predom inantly echogenic components, again most suggestive of a teratoma. The left ovary measures 3.0 x 3.3 x 2.5 centimeter. No other suspicious adnexal masses. Preserved vas cularity and flow along the ovarian tissues. No free fluid in the pelvis. IMPRESSION: No evidence of intrauterine or findings to suggest an ectopic . Known right ovarian teratoma. No suspicious abnormalities in the uterus or endometrium. IUD in satisfactory position.
== END 2023-01-08 13:33 | disposition home or self-care (01) ==
LOC: ER 09:10
DX: R10.30 Lower abdominal pain, unspecified (principal); N93.9 Abnormal uterine and vaginal bleeding, unspecified
CPT/HCPCS: 36415; 76817; 76856; 84702